=== PATIENT | male | born 1970 | race Caucasian/White ===

== ENCOUNTER 2023-02-21 06:07 | Day surgery (SDC) | payer OTHER, BC ==
[~2023-02-21] VITALS: Ht 172.7 cm; Wt 124.4 kg
[~2023-02-21 06:07] MED LIST: ASPIRIN E.C. 8181 MG PO; EFFIENT10 MG PO; EUTHYROX100 MCG PO; FLOMAX 0.40.4 MG/CAP PO; LAMICTAL200 MG PO; LITHOBID 3300 MG/TAB PO; LOPRESSOR 550 MG/TAB PO; METOPROLOL TART75 MG PO; NORCO 325 MG-51 TAB PO; OZEMPIC0.25 MG/01 SQ; PRAVACHOL 40MG40 MG PO; PRIL40 PO
[2023-02-21 07:39] VITALS: BP 131/63; PULSE 69; TEMP 97.8
--- NOTE | 2023-02-21 10:17 | NUR ---
Initial visit; Patient thanked [employer] for looking in on him and offering prayer and empathy prior to his surgical procedure. Both he and [employer] have experienced shoulder issues. They comisserated about the pain and other issues regarding the recovery period. [employer] wished him well and offered God 's blessings.
[2023-02-21] MEDS ORDERED: CEPHALEXIN500 M1 PO (11:40)
[2023-02-21] MEDS ORDERED: ULTRAM 50MG TAB50 MG PO (11:41)
[2023-02-21] MEDS ORDERED: NORCO 325 MG-51 TAB PO (11:41)
[2023-02-21 12:00] VITALS: BP 120/49; PULSE 84; TEMP 97.9
[2023-02-21 12:15] VITALS: BP 166/92; PULSE 91
[2023-02-21 12:24] VITALS: TEMP 97.8
[2023-02-21 12:30] VITALS: BP 162/71; PULSE 92
--- NOTE | 2023-02-21 13:09 | NUR ---
1200-PATIENT TRANSPORTED VIA CART TO [facility], PATIENT ALERT AND ORIENTED. DENIES PAIN OR NAUSEA. VITAL SIGNS TAKEN, VSS. PATIENT REQUESTS URINAL, ASSISTED TO SIDE OF BED TO VOID, NOTED 150 ML STRAW COLORED URINE. PATIENT GIVEN PO FLUIDS AND SNACK, TOLERATED PO INTAKE WELL. PATIENT TO CALL FRIEND FOR RIDE HOME. PATIENT REQUESTS ASSISTANCE WITH COOLING SLEEVE PLACEMENT BROUGHT FROM HOME, PATIENT ASSISTED WITH DRESSING. 1248-DISCHARGE INSTRUCTIONS REVIEWED WITH PATIENT, INSTRUCTED TO CALL OFFICE FOR FOLLOW-UP OR ANY ISSUES, QUESTIONS INVITED AND PATIENT VERBALIZED UNDERSTANDING. 1250-IV CATHETER DISCONTINUED, CATHETER TIP INTACT. PRESSURE HELD AND BANDAGE APPLIED. 1257-PATIENT DENIES PAIN AND NAUSEA, VSS. PATIENT DISCHARGED TO [facility] ACCOMPANIED BY FRIEND VIA WHEELCHAIR. ALL BELONGINGS WITH PT AT TIME OF DISCHARGE.
== END 2023-02-21 12:57 | disposition home or self-care (01) ==
LOC: SDCO 06:07
DX: S43.432A Superior glenoid labrum lesion of left shoulder, initial encounter (principal); S46.212A Strain of muscle, fascia and tendon of other parts of biceps, left arm, initial encounter; S46.012A Strain of muscle(s) and tendon(s) of the rotator cuff of left shoulder, initial encounter; M19.012 Primary osteoarthritis, left shoulder; Z95.5 Presence of coronary angioplasty implant and graft; V29.99XA Rider (driver) (passenger) of other motorcycle injured in unspecified traffic accident, initial encounter; Y93.9 Activity, unspecified; Y92.9 Unspecified place or not applicable
CPT/HCPCS: A4566; A4619; C1713; J0690; J1100; J1885; J2250; J2405; J2795

== ENCOUNTER 2024-02-09 14:43 | Emergency (ER) | payer BC ==
[~2024-02-09] VITALS: Ht 172.7 cm; Wt 127.3 kg
[~2024-02-09 14:43] MED LIST changes: +ATARAX 10MG10 MG/TAB PO; +CEPHALEXIN500 M1 PO; +OZEMPIC2 MG/0.75 SQ; +PERCOCET 325 MG1 TA2 PO; +ULTRAM 50MG TAB50 MG PO; +VALIUM 5MG T5 MG/TAB
[2024-02-09 14:47] VITALS: BP 153/72; TEMP 98.1
[2024-02-09 15:57] VITALS: PULSE 78
== END 2024-02-09 15:58 | disposition home or self-care (01) ==
LOC: COL.ER 14:43
DX: Z48.01 Encounter for change or removal of surgical wound dressing (principal); M96.89 Other intraoperative and postprocedural complications and disorders of the musculoskeletal system